=== PATIENT | male | born 1965 | race Caucasian/White ===

== ENCOUNTER → 2018-01-10 | Outpatient (CLI) | payer BC ==
[~2018-01-10] MED LIST: BUSPAR15 MG PO; KENALOG,ARISTOC80 GM TP; LEXAPRO5 MG PO; PRAVACHOL80 MG PO; TEMOVATE 0.05%15 G1 TP; TOPROL XL50 MG PO; TYLENOL EXTRA500 MG PO
== END | disposition home or self-care (01) ==
LOC: CDC 09:34
DX: R94.31 Abnormal electrocardiogram [ECG] [EKG] (principal); Z86.010 Personal history of colon polyps; Z80.0 Family history of malignant neoplasm of digestive organs
CPT/HCPCS: 93000